=== PATIENT | female | born 2000 | race African-American/Black ===

== ENCOUNTER 2019-06-16 13:58 | Emergency (ER) | payer SELFPAY ==
[~2019-06-16] VITALS: Ht 157.5 cm; Wt 80.5 kg
[2019-06-16 13:59] VITALS: BP 127/60
== END 2019-06-16 15:23 | disposition left against medical advice (07) ==
LOC: M ED 13:58
DX: Z53.21 Procedure and treatment not carried out due to patient leaving prior to being seen by health care provider (principal)

== ENCOUNTER 2019-06-17 21:45 | Emergency (ER) | payer SELFPAY ==
[~2019-06-17] VITALS: Ht 157.5 cm; Wt 81.5 kg
[2019-06-17 21:45] VITALS: BP 137/88
== END 2019-06-17 23:23 | disposition left against medical advice (07) ==
LOC: M ED 21:45
DX: Z53.21 Procedure and treatment not carried out due to patient leaving prior to being seen by health care provider (principal)

== ENCOUNTER 2019-06-18 20:41 | Inpatient (IN) | payer MEDICAID, SELFPAY ==
[2019-06-18 21:23] LABS: HEMOGLOBIN 12.7 g/dl (12.0-15.5); MEAN CORPUSCULAR HEMOGLOBIN 29.9 pg (27.0-33.0); MEAN CORPUSCULAR HGB CONC 32.6 g/dl (32.0-36.5); MEAN CORPUSCULAR VOLUME 91.8 fl (80.0-96.0); PLATELET COUNT, AUTOMATED 316 10^3/uL (150-450); RED BLOOD COUNT 4.25 10^6/uL (4.00-5.40); WHITE BLOOD COUNT 11.4 10^3/uL (4.0-10.0)
[2019-06-18 21:50] LABS: AMPHETAMINES LEVEL URINE NEGATIVE (NEGATIVE); BARBITURATES URINE NEGATIVE (NEGATIVE); BENZODIAZEPINES URINE NEGATIVE (NEGATIVE); CANNABINOIDS URINE NEGATIVE (NEGATIVE); COCAINE METABOLITE URINE NEGATIVE (NEGATIVE); METHADONE URINE NEGATIVE (NEGATIVE); OPIATES URINE NEGATIVE (NEGATIVE); PHENCYCLIDINE URINE NEGATIVE (NEGATIVE)
[2019-06-18 22:08] LABS: ACETAMINOPHEN LEVEL < 2.0 UG/ML (10.0-30.0); ALBUMIN 3.8 GM/DL (3.2-5.2); ALT/SGPT 25 U/L (12-78); BILIRUBIN,DIRECT 0.1 MG/DL (0.0-0.2); BILIRUBIN,TOTAL 0.4 MG/DL (0.2-1.0); BLOOD UREA NITROGEN 9 MG/DL (7-18); CALCIUM LEVEL 9.1 MG/DL (8.5-10.1); CARBON DIOXIDE LEVEL 25 MEQ/L (21-32); CHLORIDE LEVEL 112 MEQ/L (98-107); CREATININE FOR GFR 0.57 MG/DL (0.55-1.30); GLUCOSE, FASTING 82 MG/DL (70-100); HCG, SERUM QUANTITATIVE < 1.0 MIU/ML; POTASSIUM SERUM 3.9 MEQ/L (3.5-5.1); SALICYLATE LEVEL < 1.7 MG/DL (5.0-30.0); SODIUM LEVEL 142 MEQ/L (136-145); THYROID STIMULATING HORMONE 0.905 uIU/ML (0.463-3.98); TOTAL PROTEIN 7.1 GM/DL (6.4-8.2)
[2019-06-18 22:09] LABS: ETHYL ALCOHOL (ETHANOL) < 0.003 % (0.000-0.010)
[2019-06-19] MEDS ORDERED: haloperidoL 5 MG TAB PO PRN (12:45)
[2019-06-19] MEDS ORDERED: traZODone 50 MG TAB PO PRN (12:45)
[2019-06-19] MEDS ORDERED: MAALOX 30 ML SUSP *UDC PO PRN (12:45)
[2019-06-19] MEDS ORDERED: LORazepam 1 MG TAB PO PRN (12:45)
[2019-06-19] MEDS ORDERED: MOM 30ML SUSPENSION UDC PO PRN (12:45)
--- NOTE | 2019-06-19 19:23 | HPE ---
DATE OF ADMISSION: 06/19/2019 HISTORY OF THE PRESENT ILLNESS: Please refer to psychiatric history and evaluation for further details on this admission. This examination and history is intended for medical issues which may need treatment, followup, or consult on this 18-year-old female. ALLERGIES: AMOXICILLIN. PRIMARY CARE PROVIDER: She does not know. SOCIAL HISTORY: She is single, . Ethyl alcohol (EtOH): None. Smokes: None. Recreational drug use: None. PAST MEDICAL HISTORY: Attention-deficit hyperactivity disorder (ADHD). Bipolar. Asthma for which she uses an occasional rescue inhaler. She has not needed recently. PAST SURGICAL HISTORY: Negative. HOME MEDICATIONS: Albuterol HFA two puffs by mouth four times a day as needed for shortness of breath or wheeze. FAMILY HISTORY: Mother is alive and has schizophrenia. Father was and per the patient, was murdered. LABORATORY STUDIES: White count 11.4, hemoglobin 12.7, hematocrit 39, platelets 316. Sodium 142, potassium 3.9, chloride 112, CO2 of 25, BUN 9, creatinine 0.57, TSH 0.905, beta hCG less than 1. Urine for toxicology was negative. REVIEW OF SYSTEMS: Eleven systems review was done, was unremarkable. PHYSICAL EXAMINATION: A 18-year-old cooperative female in no acute distress. Blood pressure 120/66, pulse 80, respirations 16, temperature 98. Oxygen saturation 98% on room air. The patient is alert and oriented times three. Pupils equal and reactive to light. Cornea and sclerae clear. Conjunctivae is normal. No facial asymmetry. Pharynx: Tongue and gums pink and moist. Tongue is midline. Neck is supple without lymphadenopathy. No thyromegaly. No goiter. Carotids 2+ without bruit. Chest is clear to auscultation without wheeze or retractions. Heart is regular. Abdomen benign. Bowel sounds positive. Genital/Rectal: Not done. Extremities show equal strength, full range of motion. No cyanosis, clubbing or edema. Peripheral pulses equal and palpable bilaterally. Skin is warm and dry. IMPRESSION AND PLAN: Psychiatric plan per psychiatry. History of asthma. Will order albuterol two puffs HFA four times a day as needed for shortness of breath or wheeze. Mild leukocytosis. No fever or chills. Possibly secondary to stress. Will recheck CBC in the morning. No other acute medical issues.
[2019-06-19] MEDS: ACETAMINOPHEN TAB 650MG DOSE (2X325MG) PO PRN (19:58)
[2019-06-20] MEDS: ALBUTEROL 90 MCG/ACT 8GM HFA INHALER INH PRN ×3 (06:09→18:19)
[2019-06-20 06:27] LABS: BASO # 0.1 10^3/uL (0.0-0.2); BASO % 0.5 % (0.0-1.0); EOS # 0.6 10^3/uL (0.0-0.50); EOS % 5.5 % (0.0-3.0); HEMOGLOBIN 13.2 g/dl (12.0-15.5); LYMPH # 3.6 10^3/uL (1.5-6.5); LYMPH % 34.9 % (24.0-44.0); MEAN CORPUSCULAR HEMOGLOBIN 29.3 pg (27.0-33.0); MEAN CORPUSCULAR HGB CONC 32.2 g/dl (32.0-36.5); MEAN CORPUSCULAR VOLUME 91.1 fl (80.0-96.0); MONO # 1.1 10^3/uL (0.0-0.8); MONO % 10.7 % (0.0-5.0); NEUTROPHILS # 4.9 10^3/uL (1.8-7.7); NEUTROPHILS % 48.1 % (36.0-66.0); PLATELET COUNT, AUTOMATED 345 10^3/uL (150-450); WHITE BLOOD COUNT 10.3 10^3/uL (4.0-10.0)
[2019-06-20] MEDS: ACETAMINOPHEN TAB 650MG DOSE (2X325MG) PO PRN ×2 (06:29→21:19)
[2019-06-20 06:36] VITALS: BP 123/79
[2019-06-20 16:28] VITALS: BP 102/56
--- NOTE | 2019-06-21 00:28 | MHHPE ---
DATE OF ADMISSION: 06/19/2019 CURRENT MEDICATIONS: Abilify Maintena monthly injection. CHIEF COMPLAINT: The patient was threatening to jump off a bridge. HISTORY OF PRESENT ILLNESS: This is a 18-year-old single female, currently homeless. She is from the [place] area. She impulsively moved down here to live with a male friend that she met on Facebook. His landlord would not let her stay there so she is currently homeless. She got into a fight with a girlfriend and voiced suicidal ideation threatening to jump off a bridge. The patient is not a good historian. She apparently has a history of bipolar disorder but is vague about many details. THe patient had claimed that she was 5 months . She claims that she was seeing an OB doctor up in [place], this apparently is a fabrication. She continued to state that she was despite negative tests and negative ultrasound here in the emergency room. The patient does have a 4-year-old son being take care of by her adoptive mother, first name Brianne. The patient states that she has a history of posttraumatic stress disorder (PTSD). She claims that she witnessed her father being murdered at age 7. She reports having nightmares and flashbacks about this. She also claims to have attention deficit hyperactivity disorder (ADHD) and a learning disability. She dropped out of school in the 11th grade. THe patient was in special education and [employer] program. The patient denied that she has had any recent psychiatric hospitalizations. Her mother provided information that she had recently been hospitalized at [facility], those records will be requested. The patient also reported paranoid ideations of people in [facility] who are trying to stab her because she had turned them into the police for using drugs. The patient has been on Abilify Maintena for the past year or two, but apparently with poor compliance. Her mother provided information that the patient had alcohol syndrome, reactive attachment disorder, oppositional defiant disorder and autism spectrum disorder. PSYCHIATRIC HISTORY: [facility] in [place], mental health center at [facility]. MEDICAL HISTORY: The patient claims that she is healthy. ALLERGIES: AMOXICILLIN. LEGAL HISTORY: The patient has criminal charges pending for harassment. She is due in court 07/25/2019. SOCIAL HISTORY: The patient was born in [place]. She dropped out of high school in the 11th grade. She has no work history. The patient is adopted. She has met her biological mother, who apparently has a history of alcoholism and schizophrenia. The patient's father is . She has no siblings. The patient has a 4-year-old son, as mentioned above. FAMILY PSYCHIATRIC HISTORY: The patient's mother is schizophrenic. MENTAL STATUS EXAMINATION: The patient is alert and oriented but is a poor historian. IQ appears to be borderline intellectual functioning. The patient had been delusional about , but this appears to be resolving. The patient reports recent depressive symptoms with suicidal ideation. No signs of vadim. She denies having any voices. The patient reports paranoia about people threatening to stab her. No signs of thought disorder. Insight and judgment markedly impaired. Grooming and hygiene are marginal. The patient is a potential danger to herself. Length of stay is 5 to 7 days. DIAGNOSES: 1. Bipolar disorder by history. 2. Posttraumatic stress disorder (PTSD). 3. Attention deficit hyperactivity disorder (ADHD). 4. Rule out borderline intellectual functioning. PLAN: The patient appears to be intellectually challenged with poor coping skills. She apparently has done well on Abilify in the past. She reports poor medication compliance, so likely will need to be restarted on the monthly injection. Continue oral Abilify. Staff to obtain old records and get family input with likely referral back to the [place] area.
[2019-06-21 06:34] VITALS: BP 127/66
[2019-06-21] MEDS: ALBUTEROL 90 MCG/ACT 8GM HFA INHALER INH PRN ×2 (06:46→12:17)
[2019-06-21] MEDS ORDERED: ARIPiprazole MONOHYDRATE 400 MG INJ (ABILIFY)(J0401) IM ONE (10:00)
[2019-06-21] MEDS ORDERED: ARIP1TAB10 PO (10:34)
--- NOTE | 2019-06-22 21:58 | MHDS ---
DATE OF ADMISSION: 06/19/2019 DATE OF DISCHARGE: 06/21/2019 VITAL SIGNS: Temperature 97.4, pulse 71, respirations 12, blood pressure 127/66. LABORATORY DATA: CBC and differential within normal limits except for elevated WBC at 11.4. Chemistry survey is within normal limits except for elevated chloride at 112. test is negative. Urine toxicology screen is negative. DISCHARGE DIAGNOSES: 1. Bipolar disorder, unspecified. 2. Intellectual disability disorder, mild. 3. Attention deficit hyperactivity disorder 4. Posttraumatic stress disorder. DISCHARGE MEDICATIONS: - Abilify 5 mg three times a day times one week - Abilify Maintena injection in 1 month. Question milligram strength, 300 mg or 400 mg. CHIEF COMPLAINT: Patient was threatening to jump off a bridge. HISTORY OF PRESENT ILLNESS: This is a 18-year-old single female, currently homeless. She is from the [facility]. She impulsively moved down here to [place] to live with a male friend that she met on Facebook. His landlord would not let her live there, so she was homeless. She apparently told multiple acquaintances that she was suicidal and that she was going to jump off a bridge. Another stressor is that she got into a verbal fight with a girlfriend on the telephone. Patient is not a good historian. She does have a history of bipolar disorder but is vague about various details. Patient's mother was contacted. Mother states that the patient is in the Office for People with Developmental Disabilities ([employer]) system, indicating that the patient most likely has mild and perhaps moderate intellectual disability. The patient claimed that she was . She had fabricated a whole story that she was seeing an agriscience instructor back home. A test in the emergency room as well as a negative ultrasound here in the emergency department (ED) finally convinced her that she was not, indeed, . She does have a history of posttraumatic stress disorder (PTSD). She claims that she witnessed the murder of her father at age 7. She claims to have nightmares and flashbacks about this. The patient was in special education in a [employer] program. Patient was recently hospitalized at [facility] back in April, also with a diagnosis of bipolar disorder. She had voiced some homicidal ideation at the time. She was placed back on her Abilify. She has been on and off the Abilify Maintena for the past 12-18 months. Her mother states that she has a history of poor medication compliance. PROGRESS ON THE UNIT: The patient's mood brightened rapidly on the unit. Her affect improved dramatically. She no longer voiced any delusional beliefs about being . Her mother is concerned that she not get . Her mother is watching her 4-year-old son back in [place]. Patient was reasonably social with her peers. Her behavior was reasonably appropriate on the unit. No outbursts were noted. Patient requested discharge here to the [facility] [place] [facility] [place]. The patient's mother wants her to return to her home county but will monitor the patient and assure that she follows up with outpatient mental health care. Patient is agreeable to an Abilify Maintena injection prior to discharge. She is educated as to the need to take oral Abilify temporarily to build up her blood levels. MENTAL STATUS EXAMINATION: At time of discharge, mood and affect appear bright. She is not depressed. She is not suicidal, not homicidal. She denied hearing any voices. She had reported some paranoia upon admission. She is not voicing any paranoid ideation at time of discharge. No signs of a thought disorder. Patient's intelligence quotient (IQ) does appear limited, at least in the mild if not moderate intellectual disability range. Insight and judgment are fair. No current signs of impulsivity or dangerousness. ASSESSMENT: Patient has responded quickly to reinstituting her Abilify. Prognosis appears reasonably good if she stays on the Abilify, especially the injection. She is not sure what dose of the Abilify Maintena she was on previously. Outpatient records from her mental health clinic are not available at time of discharge. Patient is given 400 mg Abilify Maintena prior to discharge and should receive another injection in 1 month. PLAN: Discharge to the community to her boyfriend, who has been contacted and feels comfortable taking responsibility for her. Patient's mother also to monitor her status as an outpatient and to facilitate outpatient care. edited: 07/24/2019 0830 toan ASHLEY
== END 2019-06-21 15:03 | disposition home or self-care (01) | DRG 753 ==
LOC: M ED 20:41 → M ED INP 06-19 12:44 → M PSY 06-19 15:20
PROVIDERS: ADMIT Psychiatry & Neurology Psychiatry; ATTEND Psychiatry & Neurology Psychiatry
DX: F31.9 Bipolar disorder, unspecified (principal); F43.10 Post-traumatic stress disorder, unspecified; G90.9 Disorder of the autonomic nervous system, unspecified; F90.9 Attention-deficit hyperactivity disorder, unspecified type; J45.909 Unspecified asthma, uncomplicated; F70 Mild intellectual disabilities; Z81.8 Family history of other mental and behavioral disorders; Z59.0 Homelessness; Z65.3 Problems related to other legal circumstances; Z88.0 Allergy status to penicillin; Z81.1 Family history of alcohol abuse and dependence

== ENCOUNTER 2019-06-21 21:33 | Emergency (ER) | payer MEDICAID ==
[~2019-06-21] VITALS: Ht 157.5 cm; Wt 80.5 kg
[~2019-06-21 21:33] MED LIST: ARIP1TAB10 PO
[2019-06-21 21:52] VITALS: BP 158/94
[2019-06-21] MEDS ORDERED: ULIPRISTAL ACETATE 30 MG TAB (ELLA) PO ONE (23:15)
== END 2019-06-21 23:30 | disposition left against medical advice (07) ==
LOC: M ED 21:33
DX: Z04.41 Encounter for examination and observation following alleged adult rape (principal); F20.9 Schizophrenia, unspecified; Z53.21 Procedure and treatment not carried out due to patient leaving prior to being seen by health care provider; Z88.0 Allergy status to penicillin

== ENCOUNTER 2023-03-26 11:03 | Emergency (ER) | payer MEDICAID ==
[~2023-03-26] VITALS: Ht 157.5 cm; Wt 83.0 kg
[2023-03-26] MEDS ORDERED: VENTAER INH (11:24)
[2023-03-26] MEDS ORDERED: PREN1TAB11 PO (11:24)
[2023-03-26 13:10] LABS: HEMATOCRIT 42.5 % (36.0-47.0); HEMOGLOBIN 13.6 g/dl (12.0-15.5); MEAN CORPUSCULAR HEMOGLOBIN 30.6 pg (27.0-33.0); MEAN CORPUSCULAR VOLUME 95.7 fl (80.0-96.0); PLATELET COUNT, AUTOMATED 317 10^3/uL (150-450); RED BLOOD COUNT 4.44 10^6/uL (4.00-5.40)
[2023-03-26 13:27] LABS: ETHYL ALCOHOL (ETHANOL) < 0.003 % (0.000-0.010)
[2023-03-26 13:29] LABS: ACETAMINOPHEN LEVEL < 2.0 UG/ML (10.0-20.0); ALBUMIN 3.6 G/DL (3.2-5.2); ALKALINE PHOSPHATASE 68 U/L (46-116); ALT/SGPT 20 U/L (7.0-40); AST/SGOT 19 U/L (<34); BILIRUBIN,DIRECT 0.1 MG/DL (<0.4); BILIRUBIN,TOTAL 0.5 MG/DL (0.3-1.2); BLOOD UREA NITROGEN 6 MG/DL (9-23); CARBON DIOXIDE LEVEL 21 MMOL/L (20-31); CHLORIDE LEVEL 105 MMOL/L (98-107); CREATININE FOR GFR 0.51 MG/DL (0.55-1.30); GLOMERULAR FILTRATION RATE > 60.0 (>60); GLUCOSE, FASTING 79 MG/DL (60-100); POTASSIUM SERUM 3.7 MMOL/L (3.5-5.1); SALICYLATE LEVEL 6.2 MG/DL (<30); SODIUM LEVEL 136 MMOL/L (136-145); TOTAL PROTEIN 7.5 G/DL (5.7-8.2)
[2023-03-26 13:36] LABS: AMPHETAMINES LEVEL URINE NEGATIVE (NEGATIVE)
[2023-03-26 13:37] LABS: BARBITURATES URINE NEGATIVE (NEGATIVE); BENZODIAZEPINES URINE NEGATIVE (NEGATIVE); COCAINE METABOLITE URINE NEGATIVE (NEGATIVE); METHADONE URINE NEGATIVE (NEGATIVE); OPIATES URINE NEGATIVE (NEGATIVE); PHENCYCLIDINE URINE NEGATIVE (NEGATIVE)
[2023-03-26 13:39] LABS: CANNABINOIDS URINE POSITIVE (NEGATIVE)
[2023-03-26 13:46] LABS: HCG, SERUM QUALITATIVE POSITIVE (NEGATIVE)
[2023-03-26 16:13] VITALS: BP 121/69
== END 2023-03-26 16:04 | disposition home or self-care (01) ==
LOC: M ED 11:03
DX: O99.341 Other mental disorders complicating pregnancy, first trimester (principal); F32.A Depression, unspecified; Z3A.11 11 weeks gestation of pregnancy; Z88.0 Allergy status to penicillin; J45.909 Unspecified asthma, uncomplicated; Z79.51 Long term (current) use of inhaled steroids